=== PATIENT | male | born 1975 | race Caucasian/White ===

== ENCOUNTER 2016-11-27 22:55 | Observation (INO) | payer OTHER ==
[~2016-11-27] VITALS: Ht 190.5 cm; Wt 98.5 kg
--- NOTE | ~2016-11-27 | DS ---
PATIENT'S NAME: NYA [facility] AGE: 41 Y [address] ROOM: [place] [address] LOCATION: GPCU ADMIT DATE: 11/28/2016 Discharge Summary DISCHARGE DATE: 11/28/2016 FAMILY PHYSICIAN: Physician, Unknown ATTENDING PHYSICIAN: Lonnie Olmstead PRINCIPAL DIAGNOSIS: Atypical chest pain. SECONDARY DIAGNOSIS: Pre-diabetes. HOSPITAL COURSE: A 41-year-old gentleman with a past medical history of smoking and premature coronary artery disease was admitted to the hospital with left-sided chest pain. He was admitted and started on appropriate medication. A CAT scan of the chest was done, which did not reveal any acute cardiopulmonary embolism, but noted to have small pulmonary nodules which needs to be followed up in six months. All the initial lab work for ACS came back negative. A stress test was done, which was read negative for any active or reversible ischemia. The diagnosis of atypical chest pain or costochondritis was assumed, and the patient was discharged home. On the lab work, he was noted to have a hemoglobin A1c of 6.1. It was discussed with the patient, and he is saying he is already doing lifestyle modification and declined to use any medication like metformin at this point. He does not have a primary care physician, and I advised to establish primary care at this point. He will need a CAT scan to follow up those pulmonary nodules in six months. DISCHARGE MEDICATIONS: Include only aspirin 81 mg p.o. every day, which he was on already. ACTIVITY: As tolerated. DIET: Diabetic diet. DISPOSITION: He can return to work at his own discretion. PROGRESS NOTE ON THE DAY OF DISCHARGE: SUBJECTIVE: No chest pain. No shortness of breath. No headache or fever. OBJECTIVE: VITAL SIGNS: All stable. GENERAL: No acute distress. Alert and oriented x3. CARDIOVASCULAR: S1, S2. No murmurs, gallops, or rubs. LUNGS: Clear to auscultation bilaterally. ABDOMEN: Soft, nontender, and nondistended. Bowel sounds present. EXTREMITIES: No clubbing, cyanosis, or edema. PATIENT'S NAME: NYA [facility] AGE: 41 Y [address] ROOM: [address] [address] LOCATION: GPCU ADMIT DATE: 11/28/2016 Discharge Summary DISCHARGE DATE: 11/28/2016 FAMILY PHYSICIAN: , Sumi ATTENDING PHYSICIAN: Lonnie Olmstead LABORATORY DATA: Lab work as per discharge summary as mentioned above, but no abnormalities noted on the CBC or BMP. MD JAME PEREIRA/jose /[id number] d: 11/29/16 0237 t: 11/30/16 1324, DISCHARGE SUMMARY
--- NOTE | ~2016-11-27 | ER ---
PATIENT'S NAME: NYA [facility] AGE: 41 Y [address] ROOM: [place] [address] LOCATION: GPCU ADMIT DATE: 11/28/2016 ER/Outpatient Report DISCHARGE DATE: FAMILY PHYSICIAN: PHYSICIAN, UNKNOWN ATTENDING PHYSICIAN: JOSH NAYAK Admission date and time documented on the medical record. I saw the patient at 2300 hours. CHIEF COMPLAINT: Left anterior chest pain. 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 He was sitting waiting for load when he developed left anterior chest pain accompanied with shortness of breath, diaphoresis, and some nausea. No lightheadedness, dizziness, syncope, or near syncope. No fall or trauma. No recent colds, coughs, flus, fever, chills, or sweats. Pain nonradiating. The patient described the pain as pressure crushing pain. It was about a 6/10. Paramedics were dispatched. The patient was brought to the emergency room via ambulance for evaluation. En route, the patient received 4 baby aspirin and 2 sublingual nitroglycerin. His pain went down from the 6/10 to 3/10 when he got here. I did start him on IV nitroglycerin drip that further dissipated his pain to 0. No abdominal pain. No vomiting or diarrhea. No urinary complaints. No joint or muscle swelling, redness, or pain. No skin eruptions or rash. No history of neuro changes, psych issues, or endocrine problems. HOME MEDICATIONS: See attached medication list. ALLERGIES: NONE. SOCIAL HISTORY: The patient smokes a pack of cigarettes per day. Occasional intake of alcohol. SIGNIFICANT PAST MEDICAL HISTORY: Insomnia and tobacco abuse. OPERATIONS: Left shoulder surgery, right knee surgery. REVIEW OF SYSTEMS: All systems reviewed by me are negative with the exception of those discussed PATIENT'S NAME: NYA, [facility] AGE: 41 Y [address] ROOM: [address] [place] [id number] LOCATION: GPCU ADMIT DATE: 11/28/2016 ER/Outpatient Report DISCHARGE DATE: FAMILY PHYSICIAN: PHYSICIAN, UNKNOWN ATTENDING PHYSICIAN: JOSH NAYAK in the history of the present illness. The patient did have a stress test in March 2015. PHYSICAL EXAMINATION: VITAL SIGNS: Temperature 97.9 tympanic, pulse 78, respirations 16, blood pressure 125/69, and O2 saturation on room air is 96%. Carlene Coma Scale was 15. HEAD: Normocephalic. EYES, EARS, NOSE, THROAT: Clear. Mucous membranes moist. Teeth, jaw intact. NECK: No nuchal rigidity. No thyromegaly or cervical adenopathy. No carotid bruits. LUNGS: Clear. Good air flow. No rales, rhonchi, or wheezes. HEART: Regular. Pulses are palpable. No chest wall or ribcage pain to palpation. ABDOMEN: Soft, nondistended, and nontender. Good bowel tones. No organomegaly or abnormal mass palpable. EXTREMITIES: No peripheral edema, cyanosis, or deformity. NEUROVASCULAR: Intact. SKIN: Clear. No skin eruptions or rash. DIAGNOSTIC DATA: EKG showed sinus rhythm. No acute ST elevation, ischemic change, or arrhythmia. Chest x-ray showed no acute infiltrate or change. We will review x-ray with the radiologist. LABORATORY DATA: CRP was 0.54. TSH was 2.19. Sedimentation rate was normal at 11. CPK was normal at 273. Point of care cardiac enzymes were normal. CMS was normal except for slightly elevated chloride 115, low CO2 content of 18, elevated glucose 109, low calcium of 8.4, magnesium was 2.1. Venous pH was 7.44. D- dimer was elevated 0.98. A CT scan of the chest with PE protocol was negative for pulmonary embolism. The patient did have scattered pulmonary nodules and mild bibasilar segmental atelectasis. CT scan was read by Radiology, see dictated [place] [address], 56 segs, 35 lymphs, 7 monos, 3 eos. Hemoglobin was 16 with hematocrit 46.0 and platelet count is 230,000. PTT was 30, pro-time is 9.8 with an INR 0.93. The patient did have 4 baby aspirin orally, did start on normal saline 125 mL an hour IV, did start an IV nitroglycerin drip which took his pain away at about 5 mcg. IMPRESSION: 1. Chest pain, etiology uncertain. Rule out myocardial etiology and unstable angina. 2. Tobacco abuse. 3. Family history positive for heart disease. PATIENT'S NAME: CLARKE FAY [facility] AGE: 41 Y [address] ROOM: [address] [address] LOCATION: [facility] ADMIT DATE: 11/28/2016 ER/Outpatient Report DISCHARGE DATE: FAMILY PHYSICIAN: PHYSICIAN, UNKNOWN ATTENDING PHYSICIAN: JOSH NAYAK PLAN: Discussed the patient with Dr. Nayak, hospitalist. The patient will be admitted to hospital PCU telemetry for further cardiac evaluation. Discussion ensued with the patient concerning my findings and recommendations, he understands. MD SHAYLEE PARMAR/modl /[id number] d: 11/28/16 0244 t: 11/28/16 1813, OUTPATIENT REPORT
--- NOTE | ~2016-11-27 | ECHO ---
Transthoracic Echocardiography Report (TTE) Demographics Patient Name CLARKE FAY JR Date of Study 11/28/2016 Patient Number [id number] Visit Number [id number] Date of 1975 Room Number G6304 Accession Number [id number] Gender Male Age 41 year(s) Referring Aysha Klein MD Pharmacist In Charge Owner Dom Castillo RDCS, Physician RVT Physician Interpreting Arnold Galicia MD Radio Program Director Physician Supervising Ordering Physician Aysha Klein MD, MD/P Nurse Stress Passenger Brakeman Conclusions Contractility Score Summary Normal Left Ventricular contractility was noted. Summary The estimated left ventricular ejection fraction is 65%. No significant valvular abnormalities. Procedure Type of Study TTE procedure:2D Echocardiogram. Procedure Date Date: 11/28/2016 Start: 10:27 AM Study Location: Echo Lab Technical Quality: Adequate visualization Indications:Chest pressure. Appropriate Use Criteria: 9 Patient Status: Routine HR: 75 bpm BP: 124/74 mmHg M-Mode/2D Measurements LV Diastolic Dimension: 4.59 cm LV Systolic Dimension: 2.98 cm LV Septum Diastolic: 0.93 cm LV PW Diastolic: 0.98 cm AO Root Dimension: 3.4 cm Cardiac Output: 4.45 l/min AV Cusp Separation: 2.3 cm RV Diastolic Dimension: 3.1 cm LA volume: 63 ml LVOT: 2 cm RV Base: 3.64 cm LVOT VTI: 18.9 cm RV Mid: 3.03 cm LV Stroke volume: 59.35 ml TAPSE: 3 cm TDI-S': 14.6 cm/s Doppler Measurements AV Peak Velocity: 0.99 m/s MV Peak E-Wave: 0.66 m/s AV Peak Gradient: 3.9 mmHg MV Peak A-Wave: 0.58 m/s AV Mean Gradient: 2 mmHg MV E/A Ratio: 1.14 LVOT Peak Velocity: 0.75 m/s MV P1/2t: 77 msec TR Gradient:25 mmHg PV Peak Velocity: 1.03 m/s Estimated RAP:5 mmHg PV Peak Gradient: 4.24 mmHg Estimated RVSP: 30 mmHg Estimated PASP: 30 mmHg E' Septal Velocity: 0.11 m/s A' Septal Velocity: 0.08 m/s E' Lateral Velocity: 0.1 m/s A' Lateral Velocity: 0.1 m/s Findings Left Ventricle Normal left ventricle size and function. Right Ventricle Normal right ventricle structure and function. Left Atrium Normal left atrial size. Right Atrium The right atrium is not dilated. IVC measures 1.71 cm with inspiratory collapse. Mitral Valve Normal mitral valve structure and function. Aortic Valve Normal aortic valve structure and function. Tricuspid Valve Mild tricuspid regurgitation by color Doppler. Pulmonic Valve Normal pulmonic valve structure and function. Pericardial Effusion No evidence of pericardial effusion. Miscellaneous Visualized portions of the aortic root and ascending aorta appear normal in size. Pleural Effusion No evidence of pleural effusion. Contractility Score LV regional wall motion:(0-Non visualized 1-Normal 2-Hypokinesis 3-Akinesis 4-Dyskinesis 5-Aneurysm) Signature dtt: Grayson Barrett (cardio) dtd: 11/28/16 1027 Physician Self Edit
--- NOTE | ~2016-11-27 | ESTC ---
Cardiac Perfusion Imaging Demographics Patient Name NYA MIR JR Gender Male Patient Number [id number] Race Visit Number [id number] Ethnicity Corporate ID Room Number G6304 Accession Number [id number] Height 75 inches Date of 1975 Weight 217 pounds Interpreting Arnold Galicia MD Date of study 11/28/2016 Physician Supervising /[place] Technologist Shana Laird APRN Ordering Physician Arnold Galicia MD Stress body art technician Stress ECG Reading Pool East Nurse Felipa Riggs Physician MARIO central supply worker Procedure Type: Nuclear Stress Test:Exercise, Cardiolite Stress Test Procedure Start time: 11/28/2016 09:30 Indications: Chest pain and Hyperlipidemia. Risk Factors The patient risk factors include:Current/Recent(w/in 1 year) tobacco use and hypercholesterolemia. Conclusions Summary Cardiolite SPECT images demonstrate homogenous uptake of radioactive tracer. No evidence of inducible reversible defect and no evidence of underlying fixed defect. Normal TID ratio Gated images demonstrate normal left ventricular systolic function without inducible wall motion abnormalities. LVEF is 64% Stress Protocols Resting ECG RSR without ST or T wave changes. Resting HR:78 bpm Resting BP:117/80 mmHg Pre-stress physical exam: Patient assessed by Nora Lanza APRN prior to testing. Stress Protocol:Exercise Peak HR:154 bpm HR response: Appropriate Peak BP:170/83 mmHg BP response: Appropriate Predicted HR: 180 bpm HR/BP product:35245 % of predicted HR: 86 Test duration:10:53 min Reason for termination:Target heart rate Exercise effort:Fair Perceived exertion:20 ECG Findings Sinus tachy Arrhythmias None Symptoms Severe shortness of breath. Had bilateral ache in arms with peak exercise. Became dizzy 9 minutes into stress. Complained of sharp pain in chest with coughing. O2 Sats during stress 92%. Stress Interpretation The electrocardiographic portion of the stress test was negative for ischemia. Blood pressure response was normal, heart rate response was normal for exertion. The Judge Treadmill Score was +10. This corresponds to a low risk stress test. Stress supervision and interpretation provided by Sandy Lanza APRN . Imaging Results Summed scores - Summed stress score: 0 - Summed rest score: 0 - Summed difference score: 0 Stress ejection Ejection fraction:64 % EDV :117 ml ESV :42 ml Stroke volume :75 ml LV mass :126 gr Imaging Protocols Rest Stress Isotope:Tc99m Sestamibi IV Isotope: Tc99m Sestamibi IV Isotope dose:14.8 mCi Isotope dose:42.5 mCi Date:11/28/2016 08:27 Date:11/28/2016 10:06 Technique: SPECT Technique: Gated Supine SPECT Supine IV remains in place after procedure. Scan Time:45-60 minutes post Scan Time:45-60 minutes post injection injection Medical History Admission Data Admission date: 11/28/2016 Admission Time: 01:07 Hospital Status: Inpatient. Signatures dtt: Grayson Barrett (cardio) dtd: 11/28/1630 Physician Self Edit
--- NOTE | ~2016-11-27 | CON ---
PATIENT'S NAME: NYA [facility] AGE: 41 Y [address] ROOM: [place] [address] LOCATION: GPCU ADMIT DATE: 11/28/2016 Consultation DISCHARGE DATE: 11/28/2016 FAMILY PHYSICIAN: Physician, Unknown ATTENDING PHYSICIAN: Lonnie Olmstead REFERRING PHYSICIAN: Grayson Lopez MD CARDIOLOGY CONSULTATION REASON FOR CONSULTATION: Chest pain. HISTORY OF PRESENT ILLNESS: This is a 41-year-old gentleman with complaints of a sharp left chest pain that caused nausea and diaphoresis with shortness of breath. He reports that he had a similar incident about 2 years ago and had a workup at that time that did not show any acute cardiac problems. At this time, he did have some diaphoresis and emesis. He had also had discomfort in his chest especially when he coughed. Prior to his admission to the hospital, the ambulance crew gave him an aspirin and two doses of sublingual nitroglycerin and the pain did improve. He is a heavy smoker. Smoking over a pack of cigarettes a day, and he does tell me that his mother from heart problems at the age of 59. While he was in the ER, he underwent a CT scan for cardiopulmonary embolism which was negative, but he did have small pulmonary nodules which were recommended to be followed up within 6 months. He is a and sees a physician in [place]. PAST MEDICAL HISTORY: Includes: 1. Osteoarthritis. 2. He has chronic tobacco use. 3. Closed head injury in the past. 4. Migraines. 5. Post-traumatic stress syndrome. 6. Hypercholesterolemia. 7. History of bronchitis. PAST SURGICAL HISTORY: 1. He has had left shoulder rotator cuff repair. 2. He had a removed from his right knee. ALLERGIES: VENOM FROM HONEYBEE AND STRAWBERRIES. CURRENT HOME MEDICATIONS: Aspirin 81 mg p.o. every day. PATIENT'S NAME: NYA [facility] AGE: 41 Y [address] ROOM: [place] [address] LOCATION: GPCU ADMIT DATE: 11/28/2016 Consultation DISCHARGE DATE: 11/28/2016 FAMILY PHYSICIAN: Physician, Unknown ATTENDING PHYSICIAN: Lonnie Olmstead FAMILY HISTORY: His mother at the age of 59 of heart disease. She also had lung disease and diabetes mellitus. Father also had heart problems. He has hypertension and hypercholesterolemia. His paternal grandfather of cancer, maternal grandfather had kidney disease, and he has a paternal uncle with cancer. SOCIAL HISTORY: He is and I believe he has 3 children, one son and two daughters. He has smoked a pack of cigarettes a day for 23 years, and he does not drink alcohol. REVIEW OF SYSTEMS: GENERAL: He complained of being very tired after his episode yesterday. HEENT: He has no history of headache today. Eyes; no blurred vision or double vision. He does wear corrective lenses in the form of contacts. Ears; no problems with hearing. Nose; no epistaxis or rhinorrhea. Mouth; no gingival bleeding. Throat; he denies any sore throat, hoarseness, or difficulty swallowing. PULMONARY: He does have a chronic smoker's cough with morning production of sputum. He also has pulmonary nodules noted on CT. CARDIOVASCULAR: No history of cardiac problems. He has had echocardiogram two years ago that showed a normal ejection fraction. GASTROINTESTINAL: He has history of gastroesophageal reflux. No problems with melena or hematochezia. GENITOURINARY: No problems with nocturia or difficulty starting a stream. MUSCULOSKELETAL: He has a lot of arthritic discomfort, especially in his left shoulder. NEUROLOGIC: He does complain of some numbness and tingling at times in his left arm. PSYCHIATRIC: He does suffer from post-traumatic stress disorder. ENDOCRINE: No history of hyper or hypothyroidism. No history of diabetes mellitus. PHYSICAL EXAMINATION: VITAL SIGNS: He is 6 feet 3 inches tall. He weighs 217 pounds with a BMI of 27.1. Blood pressure is 114/73, heart rate 55, and temperature is 97.4. GENERAL APPEARANCE: He is alert and oriented. SKIN: Warm, dry, and pink. HEENT: Pupils equal, round, and react briskly to light. EOMs are intact. RESPIRATORY: Lung sounds are very diminished with occasional expiratory wheezes. CARDIOVASCULAR: Regular with a normal S1 and S2. ABDOMEN: Soft. Bowel sounds are present. EXTREMITIES: No peripheral edema. No clubbing. No cyanosis. Distal pulses PATIENT'S NAME: CLARKE FAY [facility] AGE: 41 Y [address] ROOM: G6[address] [place], [place] [address] LOCATION: GPCU ADMIT DATE: 11/28/2016 Consultation DISCHARGE DATE: 11/28/2016 FAMILY PHYSICIAN: Physician, Unknown ATTENDING PHYSICIAN: Lonnie Olmstead are 2+/4. PSYCHIATRIC: His affect is flat with poor eye contact. His gait was not assessed. LABORATORY DATA AND IMAGING STUDIES: Cardiac enzymes were negative. BUN was 19, creatinine 1.3, sodium 143, and potassium 3.8. Hemoglobin 16.0 and white count 11.5. ASSESSMENT AND PLAN: 1. Chest pain. His cardiac enzymes are negative. We will plan for a stress test. 2. Chronic tobacco use. He states that he is working on smoking cessation. We will continue to support him in his efforts. The Assessment and Plan, History of Present Illness, and Physical Examination are per Dr. Lopez. We would like to thank Dr. Olmstead for allowing us to participate in this patient's care as well as the [facility]. REINALDO MAJOR APRN FOR GRAYSON LOPEZ MD TGP/modl /[id number] d: 11/29/16 1742 t: 12/04/16 1654, CONSULTATION REPORT
--- NOTE | ~2016-11-27 | HP ---
PATIENT'S NAME: NYA [facility] AGE: 41 Y [address] ROOM: [place] [address] LOCATION: GPCU ADMIT DATE: 11/28/2016 History & Physical DISCHARGE DATE: FAMILY PHYSICIAN: PHYSICIAN, UNKNOWN ATTENDING PHYSICIAN: JOSH NAYAK DATE OF SERVICE: CHIEF COMPLAINT: Chest pain. 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 The story is that the patient was at work yesterday driving the truck and then he got out of the truck and walked into the back of the truck to open the trunk of the truck. Then, the patient went back to drive the truck and while the patient was driving the truck, the patient started to feel this sudden onset of left side chest pain that he described as somebody sitting on his chest as well as sensation of stabbing type of pain. Intensity was 9/10. It was on and off, lasted for few seconds. He was also diaphoretic and also felt nauseous and he vomited 3 times and also felt lightheaded, but he did not have any syncope. At the same time, he was having some degree of shortness of breath when the chest pain was happening. A coworker saw him and he did not look good in general, so ambulance was called. When the ambulance crew arrived, he was given full-dose aspirin and also gave 2 dose of sublingual nitroglycerin and the patient's chest pain improved significantly. The patient was later brought here for evaluation. The patient is a heavy smoker about 1 pack per day for many years and also his mother at age 59 from heart problem likely from myocardial infarction, but the patient was not entirely sure of this. The patient denies any other symptoms. REVIEW OF SYSTEMS: As mentioned in the history of present illness. All other systems were reviewed and they were negative except those mentioned in the history of present illness. PAST MEDICAL HISTORY: None according to the patient. ALLERGIES: NONE. HOME MEDICATIONS: PATIENT'S NAME: NYA [facility] AGE: 41 Y [address] ROOM: [address] [address] LOCATION: GPCU ADMIT DATE: 11/28/2016 History & Physical DISCHARGE DATE: FAMILY PHYSICIAN: PHYSICIAN, UNKNOWN ATTENDING PHYSICIAN: JOSH NAYAK Aspirin 81 mg p.o. daily. SOCIAL HISTORY: The patient is an active cigarette smoker about 1 pack per day for many years. He denies any alcohol or any illegal drug use. FAMILY HISTORY: Mother from heart problem, likely myocardial infarction at age 59 and also has diabetes type 2. Father had diabetes type 2, also hypertension, and also hyperlipidemia. He has 3 sisters and all are healthy, but one of them probably has atrial flutter, according to the patient. PAST SURGICAL HISTORY: Status post left shoulder rotator cuff surgery in the past. PHYSICAL EXAMINATION: VITAL SIGNS: At the time of my evaluation, temperature was 98, blood pressure was 135/80, heart rate was 80, respirations were 14, and saturation was 98% on room air. GENERAL APPEARANCE: Alert and oriented x3, in no acute distress. HEENT: Pupils are equally round and reactive to light. Extraocular muscles intact. Anicteric sclerae. Nasal turbinates are normal bilaterally. Moist oral mucosa. NECK: No JVD. CARDIOVASCULAR: Regular rate and rhythm. No murmur, no rubs, no gallops. Normal S1, S2. RESPIRATORY: Decreased breath sounds diffusely, but clear to auscultation. No rales, no rhonchi, no crackles, no wheezing. CHEST: Chest wall nontender to palpation. ABDOMEN: Soft, nontender, nondistended, normal bowel sounds, no hepatosplenomegaly. Bowel sounds are present. No mass. EXTREMITIES: No edema in upper or lower extremities. NEUROLOGICAL: Grossly nonfocal. SKIN: No ulcer, no rash, no cyanosis. MUSCULOSKELETAL: No joint pain and no muscle pain. Range of motion intact. LABORATORY DATA: ABG on room air showed pH is 7.44, pCO2 27, pO2 68, bicarbonate 18.3, saturation 94%. Troponin: The first set was less than 0.04 troponin. CPK 273. White blood cells 11.5, hemoglobin 16, hematocrit 46, MCV 89.1, platelets 230. Glucose 109, BUN 19, creatinine 1.3. Sodium 143, potassium 3.8, chloride 115, CO2 18, calcium 8.4, total protein 6.8, albumin 3.4, AST 22, ALT 59, alkaline phosphatase 62, total bilirubin 0.3, magnesium 2.1. Anion gap is 13.8. GFR more than 60. ESR 11, INR 0.93, PTT is 30. CK-MB less than 0.5. TSH 2.19. CRP is 0.54, D-dimer is 0.98. PATIENT'S NAME: CLARKE [facility] AGE: 41 Y [address] ROOM: [place] [address] LOCATION: GPCU ADMIT DATE: 11/28/2016 History & Physical DISCHARGE DATE: FAMILY PHYSICIAN: PHYSICIAN, UNKNOWN ATTENDING PHYSICIAN: JOSH NAYAK IMAGING STUDIES: CT pulmonary angiogram on the day of admission based on the preliminary report was read as no pulmonary embolus. Mild bibasilar subsegmental atelectasis. Scattered pulmonary nodules and recommend followup based on the final report recommendation. Chest x-ray on admission, the official reading is pending. Based on my review, I do not appreciate any effusion or consolidation. Please follow up with the official report in the morning. EKG on admission, on November 27, 2016, at 10:54 p.m. shows sinus rhythm, heart rate of 86 beats per minutes with a HI of 164 milliseconds, QRS of 92 milliseconds, and QTc of 418 milliseconds. I do not appreciate any acute ischemia. No ST elevation and no ST depression. ED COURSE: In the emergency room, the patient was given IV nitroglycerin drip. On ambulance ride, aspirin 325mg po x1 was given. The patient's chest pain went down to 1-2/10. ASSESSMENT AND PLAN: 1. Regarding his chest pain: The patient does have risk factors for coronary artery disease from heavy smoking and also chest pain was relieved with nitroglycerin. I will consult Cardiology in the morning. N.p.o. IV fluids for hydration. Continue IV nitroglycerin drip, titrate for chest pain relief. I am going to start him on aspirin 81 mg daily; p.o. Lopressor 25 mg b.i.d., one dose now; atorvastatin 80 mg, one dose now, then daily; and start him on IV heparin drip per ACS protocol. I will also get EKG in the morning and cycle cardiac enzymes every 6 hours and also get a transthoracic echo in the morning. Further plan will depend on clinical course. I am also going to start him on p.o. famotidine in case his pain could be from gastroesophageal reflux disease. The chest wall is nontender to palpation. Therefore, costochondritis is less likely at this moment. 2. Regarding his active cigarette use: The patient does not want any nicotine patch. 3. Regarding his pulmonary nodules based on the preliminary report of the CT pulmonary angiogram on admission: Please follow up with the official reading of the CT pulmonary angiogram for the final finding. 4. Regarding his deep vein thrombosis prophylaxis: He is on IV heparin drip. 5. Code status: He is a full code. Time spent in care on the day of admission. The total time spent was 35 minutes, where 10 minutes was spent on chart review and also on physical examination. The remainder of the total time spent was on interview and also PATIENT'S NAME: CLARKE FAY [facility] AGE: 41 Y [address] ROOM: [place] [address] [facility] ADMIT DATE: 11/28/2016 History & Physical DISCHARGE DATE: FAMILY PHYSICIAN: PHYSICIAN, UNKNOWN ATTENDING PHYSICIAN: JOSH NAYAK on going over the plan of care and also addressing all the question and concern that the patient and the patient's sister had at the bedside. I also went over the plan of care with the patient, his sister, and nurse in detail. Further plan will depend on clinical course. JOSH NAYAK MD CC/jose /[id number] D: [id number] T: [id number] HISTORY & PHYSICAL
[2016-11-27 23:18] LABS: BASOPHIL % 0.3 %; EOSINOPHIL # 0.3 K/uL (0.0-0.5); EOSINOPHIL % 2.7 %; IMMATURE GRANULOCYTE % 0.3 %; LYMPHOCYTE % 34.5 %; MCHC 34.8 gm/dL (32.0-36.5); MCV 89.1 fl (83.0-98.0); MONOCYTE # 0.8 K/uL (0.0-1.0); MONOCYTE % 6.6 %; MPV 10.9 fl (9.4-12.4); NEUTROPHIL # (ANC) 6.4 K/uL (1.4-9.0); NEUTROPHIL % 55.6 %; NRBC % 0 /100WBC (0-0.00); PLATELET COUNT 230 K/uL (150-450); RBC 5.16 M/uL (4.00-6.00); RDW-CV 12.5 % (11.9-14.6); WBC 11.5 K/uL (4.0-11.0)
[2016-11-27 23:24] LABS: INR - (THERAPEUTIC) 0.93 (0.92-1.07); PROTIME 9.8 SECONDS (9.8-11.4); PTT 30 SECONDS (25-32)
[2016-11-27 23:34] LABS: BICARBONATE 18.3 mmol/L (18.0-23.0); PCO2 27 mmHg (35-45); PO2 68 mmHg (80-90)
[2016-11-27 23:37] LABS: ALBUMIN 3.4 gm/dL (3.5-5.0); ALK PHOS 62 IU/L (33-138); ALT 59 IU/L (12-78); ANION GAP 13.8 (10.0-19.0); AST 22 IU/L (10-40); BLOOD UREA NITROGEN 19 mg/dL (6-24); CALCIUM 8.4 mg/dL (8.5-10.5); CHLORIDE 115 mMol/L (96-110); CO2 18 mMol/L (22-32); CPK 273 IU/L (35-332); CREATININE 1.3 mg/dL (0.6-1.3); ESTIMATED GFR (MDRD EQUATION) > 60; MAGNESIUM 2.1 mg/dL (1.8-2.6); SODIUM 143 mMol/L (135-145); TOTAL BILIRUBIN 0.3 mg/dL (0.0-1.5); TOTAL PROTEIN 6.8 g/dL (6.0-8.4)
[2016-11-27 23:38] LABS: POTASSIUM 3.8 mMol/L (3.7-5.1)
[2016-11-28 01:22] LABS: CPK 226 IU/L (35-332)
--- NOTE | 2016-11-28 05:07 | NUR ---
PATIENT ADMITTED FOR CHEST PAIN. 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 EMS CALLED. NIRTO DRIP NOW OFF DENIES CHEST PAIN. HEPARIN RUNNING AT 1000U/HR NEXT PTTHP AT 0930. D5 1/2NS AT 75ML/HR. SBA IN ROOM. HR 50-60s. SBP 100-110s. ROOM AIR. AFEBRILE. CONSULT CARDIOLOGY IN AM.
--- NOTE | 2016-11-28 10:35 | NUR ---
1030 Talked with SULY Thacker, she tells me that Neftaly is down for a stress test now and depending on how that goes he will either have a heart cath or he will dismiss to home. She doesn't think that he will have any CM needs when he is back to the floor. Let her know if he did, to please contact me and I would come back and visit with him. In reviewing his chart it appears that he lives at home in [place] with his , Nataliya and he will return there when ready. CM to continue to follow and assist. Plan home.
[2016-11-28 12:11] LABS: HEMATOCRIT 45.2 % (37.0-53.0); HEMOGLOBIN 15.4 g/dL (12.0-17.0); MCH 30.9 pg (27.0-34.0); MCHC 34.1 gm/dL (32.0-36.5); MCV 90.6 fl (83.0-98.0); MPV 10.9 fl (9.4-12.4); PLATELET COUNT 211 K/uL (150-450); RBC 4.99 M/uL (4.00-6.00); RDW-CV 12.8 % (11.9-14.6); WBC 9.9 K/uL (4.0-11.0)
[2016-11-28 12:31] LABS: ANION GAP 13.9 (10.0-19.0); BLOOD UREA NITROGEN 15 mg/dL (6-24); CALCIUM 8.5 mg/dL (8.5-10.5); CHLORIDE 111 mMol/L (96-110); CO2 22 mMol/L (22-32); CPK 200 IU/L (35-332); CREATININE 1.2 mg/dL (0.6-1.3); ESTIMATED GFR (MDRD EQUATION) > 60; POTASSIUM 3.9 mMol/L (3.7-5.1); SODIUM 143 mMol/L (135-145)
[2016-11-28 12:47] LABS: BANDED NEUTROPHIL # 0.2 K/uL (0.0-0.1); BANDED NEUTROPHILS % 2 %; LYMPHOCYTE # 2.7 K/uL (0.8-4.0); LYMPHOCYTE % 27 %; MONOCYTE # 0.7 K/uL (0.0-1.0); SEGMENTED NEUTROPHIL # 5.8 K/uL (1.4-9.0); SEGMENTED NEUTROPHIL % 59 %
== END 2016-11-28 13:45 | disposition disaster alternative care site (69) ==
LOC: GMED 22:55 → GPCU 11-28 01:07
PROVIDERS: Emergency Medicine; ADMIT Internal Medicine
DX: R07.89 Other chest pain (principal); R73.03 Prediabetes; F17.210 Nicotine dependence, cigarettes, uncomplicated; Z79.82 Long term (current) use of aspirin; Z98.890 Other specified postprocedural states
CPT/HCPCS: A9500; G0378; J1644; J7030; Q9967

== ENCOUNTER → 2016-11-27 | Outpatient (CLI) | payer OTHER ==
[~2016-11-27] MED LIST: ASPIRIN LO-DOSE81 MG PO; LIPITOR20 M1 PO; VENLAFAXINE HCL75 MG PO
== END | disposition disaster alternative care site (69) ==
LOC: GAMB 22:41
DX: R07.9 Chest pain, unspecified (principal); R61 Generalized hyperhidrosis; Z79.82 Long term (current) use of aspirin